=== PATIENT | male | born 1990 | race Caucasian/White ===

== ENCOUNTER 2018-07-11 12:43 | Emergency (ER) | payer BC, OTHER ==
[2018-07-11] MEDS ORDERED: Ibuprofen 200 MG TAB ONE (13:33)
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
== END 2018-07-11 14:02 | disposition home or self-care (01) ==
LOC: ERS 12:43
DX: S16.1XXA Strain of muscle, fascia and tendon at neck level, initial encounter (principal); M25.531 Pain in right wrist; M79.631 Pain in right forearm; V49.9XXA Car occupant (driver) (passenger) injured in unspecified traffic accident, initial encounter

== ENCOUNTER 2019-02-11 07:32 | Emergency (ER) | payer OTHER, SELFPAY ==
--- NOTE | 2019-02-11 09:42 | ULT ---
RIGHT UPPER EXTREMITY VENOUS ULTRASOUND: Date: 02/11/19 HISTORY: Right arm edema since this morning. TECHNIQUE: Multiplanar Diggs scale and color Doppler images were obtained in a right upper extremity venous ultra sound. Spectral analysis of the Doppler waveforms were performed. FINDINGS: The right internal jugular vein demonstrates normal compression and flow without evidence of thrombus . The right subclavian vein demonstrates normal flow and augmentation without evidence of thrombus. T he right axillary and brachial veins demonstrate normal compression, flow, and augmentation without e vidence of thrombus. The venous structures distal to the elbow are unremarkable. The basilic and cephalic veins are patent . IMPRESSION: No evidence of deep venous thrombosis. POS: [facility]
[2019-02-11 09:53] LABS: #Eosinphils 0.1 thou/uL (0.0-0.7); #Lymphocytes 2.5 thou/uL (1.20-3.40); #Monocytes 0.6 thou/uL (0.11-0.59); #Neutrophils 6.8 thou/uL (1.40-6.50); %Basophils 0.5 % (0.0-1.0); %Eosinophils 1.2 % (0.0-10.0); %Lymphocytes 24.8 % (21.0-51.0); %Monocytes 6.2 % (0.0-10.0); %Neutrophils 67.4 % (42.0-75.0); Hemoglobin 16.4 g/dL (14.0-18.0); Mean Corpuscular HGB CONC 34.3 g/dL (32.0-36.0); Mean Corpuscular Hemoglobin 32.6 pg (27.0-31.0); Mean Corpuscular Volume 95.1 fL (78.0-98.0); Mean Platelet Volume 6.7 fL (7.4-10.4); Platelet Count 306 thou/uL (130-400); RBC Distribution Width 11.9 % (11.5-14.5); Red Blood Cell (RBC) Count 5.05 mill/uL (4.70-6.10); White Blood Cell (WBC) Count 10.1 thou/uL (4.8-10.8)
[2019-02-11 10:14] LABS: ALT (SGPT) 17 U/L (8-55); AST (SGOT) 20 U/L (5-34); Albumin 4.7 g/dL (3.5-5.0); Alkaline Phosphatase 71 U/L (40-150); Anion Gap 11 mmol/L (10-20); BUN (Urea Nitrogen) 9 mg/dL (8.9-20.6); Bilirubin, Total 1.8 mg/dL (0.2-1.2); Calc. Creatinine Clearance 0 mL/min (70-130); Calcium 9.8 mg/dL (7.8-10.44); Carbon Dioxide 28 mmol/L (22-29); Chloride 102 mmol/L (98-107); Estimated GFR-MDRD Greater than 90; Globulin 2.5 g/dL (2.4-3.5); Glucose 89 mg/dL (70-105); Potassium 4.1 mmol/L (3.5-5.1); Protein, Total 7.2 g/dL (6.0-8.3); Sodium 137 mmol/L (136-145)
--- NOTE | 2019-02-11 11:00 | RAD ---
RIGHT ELBOW 4 VIEWS: Date: 02/11/19 HISTORY: Right elbow swelling without associated injury. FINDINGS: There is generalized soft tissue swelling of the elbow region. No fracture, dislocation, or other sig nificant acute osseous abnormality. IMPRESSION: Prominent nonspecific elbow soft tissue swelling without evidence for an osseous abnormality. POS: [facility]
[2019-02-11] MEDS ORDERED: Sodium Chloride 0.9% 100 ML ONE (11:19)
[2019-02-11] MEDS ORDERED: cefTRIAXone\\ROCEPHIN 1 GM VIAL ONE (11:19)
== END 2019-02-11 13:04 | disposition home or self-care (01) ==
LOC: ERS 07:32
DX: L03.113 Cellulitis of right upper limb (principal)
CPT/HCPCS: 80053; 85025; 86140; 96365; 96367; J0696; J3370; J3490

== ENCOUNTER 2019-03-30 14:54 | Emergency (ER) | payer SELFPAY ==
[2019-03-30 16:14] LABS: #Basophils 0.1 thou/uL (0.0-0.2); #Eosinphils 0.2 thou/uL (0.0-0.7); #Lymphocytes 2.2 thou/uL (1.20-3.40); #Monocytes 1.2 thou/uL (0.11-0.59); #Neutrophils 7.2 thou/uL (1.40-6.50); %Basophils 0.6 % (0.0-1.0); %Eosinophils 1.6 % (0.0-10.0); %Lymphocytes 20.3 % (21.0-51.0); %Monocytes 10.8 % (0.0-10.0); %Neutrophils 66.7 % (42.0-75.0); Hemoglobin 15.4 g/dL (14.0-18.0); Mean Corpuscular HGB CONC 33.5 g/dL (32.0-36.0); Mean Corpuscular Hemoglobin 31.6 pg (27.0-31.0); Mean Corpuscular Volume 94.3 fL (78.0-98.0); Mean Platelet Volume 6.8 fL (7.4-10.4); Platelet Count 264 thou/uL (130-400); RBC Distribution Width 11.8 % (11.5-14.5); Red Blood Cell (RBC) Count 4.89 mill/uL (4.70-6.10); White Blood Cell (WBC) Count 10.7 thou/uL (4.8-10.8)
[2019-03-30 16:35] LABS: ALT (SGPT) 11 U/L (8-55); AST (SGOT) 14 U/L (5-34); Albumin 4.2 g/dL (3.5-5.0); Alkaline Phosphatase 80 U/L (40-150); Anion Gap 12 mmol/L (10-20); BUN (Urea Nitrogen) 7 mg/dL (8.9-20.6); Bilirubin, Total 0.5 mg/dL (0.2-1.2); Calc. Creatinine Clearance 0 mL/min (70-130); Calcium 9.2 mg/dL (7.8-10.44); Carbon Dioxide 23 mmol/L (22-29); Chloride 104 mmol/L (98-107); Estimated GFR-MDRD Greater than 90; Globulin 2.7 g/dL (2.4-3.5); Glucose 107 mg/dL (70-105); Lipase 17 U/L (8-78); Potassium 3.6 mmol/L (3.5-5.1); Protein, Total 6.9 g/dL (6.0-8.3); Sodium 135 mmol/L (136-145)
== END 2019-03-30 19:22 | disposition home or self-care (01) ==
LOC: ERS 14:54
DX: K62.5 Hemorrhage of anus and rectum (principal); F17.210 Nicotine dependence, cigarettes, uncomplicated
CPT/HCPCS: 36415; 80053; 82274; 83690; 85025; 86850; 86900; 86901; 99284

== ENCOUNTER 2021-12-30 16:46 | Emergency (ER) | payer BC, SELFPAY ==
[2021-12-30] MEDS ORDERED: Ketorolac Tromethamine 30 MG/ML VIAL ONE (17:11)
== END 2021-12-30 17:30 | disposition home or self-care (01) ==
LOC: ERS 16:46
DX: K04.7 Periapical abscess without sinus (principal); K02.9 Dental caries, unspecified; F17.210 Nicotine dependence, cigarettes, uncomplicated
CPT/HCPCS: 96372; 99282; J1885

== ENCOUNTER 2022-02-05 11:59 | Emergency (ER) | payer BC, MEDICAID ==
[2022-02-05] MEDS ORDERED: Hydrocortisone Sod Succ/PF 100 mg/2 ml Vial ONE (13:46)
== END 2022-02-05 14:06 | disposition home or self-care (01) ==
LOC: ERS 11:59
DX: L23.7 Allergic contact dermatitis due to plants, except food (principal)
CPT/HCPCS: 96372; 99282; J1720